=== PATIENT | female | born 1995 | race Caucasian/White ===

== ENCOUNTER 2022-08-09 19:50 | Emergency (ER) | payer BC, OTHER ==
[~2022-08-09] VITALS: Ht 165.1 cm; Wt 56.7 kg
--- NOTE | 2022-08-09 20:31 | NUR ---
PT [facility] AMBULATORY. C/O NAUSEA AND VOMITING. PT STATES THAT SHE HAS HAD TROUBLE PASSING GAS AND THAT SHE FEELS "A BUBBLING IN HER STOMACHE". PT HAS A HX OF GERD BUT DID NOT TAKE MEDICATION TODAY
--- NOTE | 2022-08-09 20:36 | NUR ---
URINE SPECIMEN SENT TO LAB
[2022-08-09] MEDS ORDERED: LIDOCAINE VISCOUS 2% UD 15 ML UDC ONE (20:55)
[2022-08-09] MEDS ORDERED: MAG HYDROX/AL HYDROX/SIMETH 30 ML UDC ONE (20:55)
[2022-08-09] MEDS ORDERED: ONDANSETRON 4 MG TAB.RAPDIS ONE (20:56)
[2022-08-09] MEDS ORDERED: FAMOTIDINE (20 MG) 20 MG TABLET ONE (20:56)
[2022-08-09] MEDS ORDERED: ONDANSETRON 4 MG TAB.RAPDIS SL ONE (21:00)
[2022-08-09] MEDS ORDERED: FAMOTIDINE (20 MG) 20 MG TABLET PO ONE (21:00)
[2022-08-09] MEDS ORDERED: LIDOCAINE VISCOUS 2% UD 15 ML UDC MM ONE (21:00)
[2022-08-09] MEDS ORDERED: MAG HYDROX/AL HYDROX/SIMETH 30 ML UDC PO ONE (21:00)
--- NOTE | 2022-08-09 21:01 | NUR ---
DR. SINGH [facility]
[2022-08-09] MEDS ORDERED: LORAZEPAM 1 MG TABLET ONE (21:11)
--- NOTE | 2022-08-09 21:19 | NUR ---
EKG DONE AT BEDSIDE
[2022-08-09] MEDS ORDERED: LORAZEPAM 1 MG TABLET PO ONE (21:30)
[2022-08-09 21:31] LABS: BILIRUBIN,URINE NEGATIVE (NEGATIVE); COLOR,URINE YELLOW (YELLOW); LEUKOCYTE ESTERASE ,URINE NEGATIVE (NEGATIVE); NITRITE, URINE NEGATIVE (NEGATIVE); PROTEIN,URINE NEGATIVE (NEGATIVE); UGLUCOSE NEGATIVE (NEGATIVE); UROBILINOGEN,URINE 0.2 EU/dL (0.2)
[2022-08-09] MEDS ORDERED: CETI-90 PO (22:54)
[2022-08-09 23:01] VITALS: BP 108/68
--- NOTE | 2022-08-09 23:01 | NUR ---
Patient discharged to home in stable condition. Written and verbal after care instructions given. Patient verbalizes understanding of instruction.
== END 2022-08-09 23:08 | disposition home or self-care (01) ==
LOC: ER 19:53
DX: K21.9 Gastro-esophageal reflux disease without esophagitis (principal); F41.9 Anxiety disorder, unspecified
CPT/HCPCS: 99284; 93005; 84703; 81003; Q0162